=== PATIENT | male | born 1965 | race African-American/Black ===

== ENCOUNTER 2019-11-13 13:45 | Emergency (ER) | payer MEDICAID ==
[~2019-11-13] VITALS: Ht 172.7 cm; Wt 70.0 kg
[~2019-11-13 13:45] MED LIST: ALBU6.7H11 IH; FLUT1DIS3 IH; IBUP-2030 PO; LISI-604 PO; METH4TAB17 PO
[2019-11-13] MEDS ORDERED: METHYLPREDNISOLONE SOD SUCC 125 MG/2 ML VIAL IV STA (14:21)
[2019-11-13] MEDS ORDERED: ALBUTEROL (0.083%) 2.5MG/3ML NEB HHN STA (14:21)
[2019-11-13] MEDS ORDERED: MAGNESIUM 2 G PREMIX 50 ML IV STA (14:21)
[2019-11-13] MEDS ORDERED: IPRATROPIUM BROMIDE (0.02%) 0.5MG/2.5ML NEB HHN STA (14:21)
[2019-11-13 14:56] LABS: BASOPHILS % 1.5 % (0.0-2.0); HEMATOCRIT. 43.8 % (42.0-52.0); LYMPHOCYTES % 36.7 % (20.0-50.0); MEAN CORPUSCULAR HEMOGLOBIN 31.9 pg (28.0-32.0); MEAN CORPUSCULAR VOLUME 92.8 fL (80.0-94.0); MONOCYTES % 10.8 % (2.0-8.0); RED BLOOD CELL COUNT 4.72 mill/uL (4.7-6.1); RED CELL DISTRIBUTION WIDTH 17.7 % (11.6-14.6)
[2019-11-13 15:00] LABS: CHLORIDE 101 mEq/L (98-107)
[2019-11-13 15:06] LABS: ETHANOL BLOOD < 10 mg/dL
[2019-11-13 17:05] VITALS: BP 127/68
[2019-11-13 17:09] LABS: *AMPHETAMINES SCREEN URINE NEGATIVE (NEGATIVE); *BARBITURATES SCREEN URINE NEGATIVE (NEGATIVE); *BENZODIAZEPINES SCREEN URINE NEGATIVE (NEGATIVE); *COCAINE SCREEN URINE NEGATIVE (NEGATIVE)
[2019-11-13 17:10] LABS: CANNABINOID URINE SCREEN PRESUMTIVE POSITIVE (NEGATIVE); METHADONE URINE SCREEN NEGATIVE (NEGATIVE); OPIATES URINE SCREEN NEGATIVE (NEGATIVE); PHENCYCLIDINE URINE SCREEN NEGATIVE (NEGATIVE)
[2019-11-13 22:02] LABS: MEAN PLATELET VOLUME 10.2 fl (7.4-10.4); PLATELET 302 x1000/uL (130-400)
== END 2019-11-13 17:55 | disposition home or self-care (01) ==
LOC: ER 13:45
DX: J44.1 Chronic obstructive pulmonary disease with (acute) exacerbation (principal); E16.2 Hypoglycemia, unspecified; E87.8 Other disorders of electrolyte and fluid balance, not elsewhere classified; I10 Essential (primary) hypertension; Z94.5 Skin transplant status; Z99.81 Dependence on supplemental oxygen
CPT/HCPCS: 36415; 71045; 80053; 80305; 80320; 82962; 83880; 84484; 85025; 93005; 96365; 96375; 99285; J2930; J3475; Z7610; G0480